=== PATIENT | female | born 1995 ===

== ENCOUNTER 2022-01-15 17:26 | Emergency (ER) | payer OTHER ==
[2022-01-15] MEDS ORDERED: Lidocaine 1% 10 ML MDV INJECT ONE (17:49)
== END 2022-01-15 18:25 | disposition home or self-care (01) ==
LOC: SUPCPDRO 17:26 → JD.ED 17:26
DX: S41.112A Laceration without foreign body of left upper arm, initial encounter (principal); Z86.16 Personal history of COVID-19; W26.8XXA Contact with other sharp object(s), not elsewhere classified, initial encounter
CPT/HCPCS: 12001; 99282-25